=== PATIENT | male | born 1955 | race Caucasian/White ===

== ENCOUNTER 2017-01-12 19:59 | Emergency (ER) | payer MEDICAID ==
[2017-01-12 20:06] VITALS: BP 108/76; PULSE 78; RESP 18; TEMP 97.3; O2SAT 91
--- NOTE | 2017-01-12 20:30 | EDPHY ---
H & P Stated Complaint: HEARING LOSS TO LEFT EAR X1 WEEK Time Seen by Provider: 01/12/17 20:27 HPI/ROS: CHIEF COMPLAINT: Left ear cerumen impaction HISTORY OF PRESENT ILLNESS: Patient is a 61-year-old man who comes to the emergency department complaining of a cerumen impaction. He states that for the last 2 days he has felt that his ear is clogged and he cannot hear as well. 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 He denies fevers. He denies discharge. He denies recent illness or infection. REVIEW OF SYSTEMS: Constitutional: denies: chills, fever, recent illness, recent injury EENTM: See HPI Respiratory: denies: cough, shortness of breath Cardiac: denies: chest pain, irregular heart rate, lightheadedness, palpitations Gastrointestinal/Abdominal: denies: abdominal pain, diarrhea, nausea, vomiting, blood streaked stools Genitourinary: denies: dysuria, frequency, hematuria, pain Musculoskeletal: denies: joint pain, muscle pain Skin: denies: lesions, rash, jaundice, bruising Neurological: denies: headache, numbness, paresthesia, tingling, dizziness, weakness Hematologic/Lymphatic: denies: blood clots, easy bleeding, easy bruising Immunologic/allergic: denies: HIV/AIDS, transplant EXAM: GENERAL: Well-appearing, well-nourished and in no acute distress. HEAD: Atraumatic, normocephalic. EYES: Pupils equal round and reactive to light, extraocular movements intact, sclera anicteric, conjunctiva are normal. ENT: Left ear cerumen impaction, no erythema, right ear clear , nares patent, oropharynx clear without exudates. Moist mucous membranes. NECK: Normal range of motion, supple without lymphadenopathy or JVD. LUNGS: Breath sounds clear to auscultation bilaterally and equal. No wheezes rales or rhonchi. HEART: Regular rate and rhythm without murmurs, rubs or gallops. ABDOMEN: Soft, nontender, normoactive bowel sounds. No guarding, no rebound. No masses appreciated. BACK: No CVA tenderness, no spinal tenderness, step-offs or deformities EXTREMITIES: Normal range of motion, no pitting or edema. No clubbing or cyanosis. NEUROLOGICAL: Cranial nerves II through XII grossly intact. Normal speech, normal gait. 5/5 strength, normal movement in all extremities, normal sensation PSYCH: Normal mood, normal affect. SKIN: Warm, dry, normal turgor, no visible rashes or lesions. Source: Patient Exam Limitations: No limitations - Personal History Current Tetanus/Diphtheria Vaccine: Yes Current Tetanus Diphtheria and Acellular Pertussis (TDAP): Yes Tetanus Vaccine Date: < 10 YEARS - Medical/Surgical History Hx Asthma: No Hx Chronic Respiratory Disease: No Hx Diabetes: No Hx Cardiac Disease: Yes Hx Renal Disease: No Hx Cirrhosis: No Hx Alcoholism: No Hx HIV/AIDS: No Hx Splenectomy or Spleen Trauma: No Other PMH: PM placement 2011, A-FIB W/ ABLATION - Family History Significant Family History: No pertinent family hx - Social History Smoking Status: Never smoked Alcohol Use: Sober Drug Use: None Constitutional: Initial Vital Signs Temperature (C) 36.3 C 01/12/17 20:02 Heart Rate 78 01/12/17 20:02 Respiratory Rate 18 01/12/17 20:02 Blood Pressure 108/76 01/12/17 20:02 O2 Sat (%) 91 L 01/12/17 20:02 Allergies/Adverse Reactions: No Known Allergies Allergy (Unverified 07/30/13 08:35) Home Medications: Medication Instructions Recorded Aspirin EC [Aspirin EC 81 mg (*)] 81 mg PO DAILY 08/09/15 Dabigatran Etexilate Mesyl 150 mg PO BID 08/09/15 [Pradaxa 150 MG (*)] Losartan Potassium [Cozaar 25 mg 25 mg PO DAILY #0 tab 08/13/15 (*)] Metoprolol Tartrate [Lopressor 50 75 mg PO BID #0 tab 08/13/15 mg (*)] Medical Decision Making ED Course/Re-evaluation: The patient's ear was irrigated successfully. He states that he feels completely better. He declines further workup or testing. Differential Diagnosis: Partial list of the Differential diagnosis considered include but were not limited to; cerumen impaction, otitis externa and although unlikely based on the history and physical exam, I also considered otitis media, tinnitus . I discussed these differential diagnoses and the plan with the patient as well as the usual and expected course. The patient understands that the diagnosis is provisional and that in medicine we are not always correct and that further workup is often warranted. Usual and customary warnings were given. All of the patient's questions were answered. The patient was instructed to return to the emergency department should the symptoms at all worsen or return, otherwise to followup with the physician as we discussed. Departure - Departure Disposition: Home, Routine, Self-Care Clinical Impression: Impacted cerumen of left ear Condition: Fair Instructions: Cerumen Impaction (ED) Referrals: NONE *PRIMARY CARE P,. [Primary Care Provider] - As per Instructions Christina Bansal MD [[facility] Primary Care Provider] - As per Instructions
== END 2017-01-12 20:54 | disposition home or self-care (01) ==
PROC: 3E1B78Z Irrigation of Ear using Irrigating Substance, Via Natural or Artificial Opening (ICD-10-PCS; principal; 2017-01-12)
DX: H61.22 Impacted cerumen, left ear (principal); Z79.82 Long term (current) use of aspirin

== ENCOUNTER → 2017-12-20 | Outpatient (CLI) | payer MEDICAID ==
[~2017-12-20] MED LIST: IOPAMIDOL (ISOVUE-370) 150 ML BTL IV ONE
== END ==
LOC: FIMAGING 08:05
PROVIDERS: ATTEND Internal Medicine Cardiovascular Disease
DX: I71.01 Dissection of thoracic aorta (principal); I48.91 Unspecified atrial fibrillation; I42.9 Cardiomyopathy, unspecified; N28.1 Cyst of kidney, acquired
CPT/HCPCS: Q9967